=== PATIENT | male | born 1980 | race Two or more races ===

== ENCOUNTER 2017-03-21 05:49 | Emergency (ER) | payer BC ==
[~2017-03-21] VITALS: Ht 175.3 cm; Wt 65.8 kg
--- NOTE | 2017-03-21 05:50 | NUR ---
to bed 2 ambulatory c/o chest pain since 28, "I've been binge drinking for 5 days". pt [id number] no acute distress noted, resp even and unlabored. place pt on cardiac monitoring, continuous pox. pending er md hein.
--- NOTE | 2017-03-21 06:02 | NUR ---
er md at bedside to eval pt with orders received.
[2017-03-21] MEDS ORDERED: LORAZEPAM INJ 2 MG/ML VIAL ONE (06:19)
[2017-03-21] MEDS ORDERED: ONDANSETRON HCL/PF 4 MG/2 ML VIAL ONE (06:19)
[2017-03-21] MEDS ORDERED: Thiamine 100 MG/ML VIAL ONE (06:19)
[2017-03-21] MEDS ORDERED: HYDROMORPHONE 1 MG/1 ML DISP.SYRIN ONE (06:21)
[2017-03-21] MEDS ORDERED: HYDROMORPHONE INJ 2 MG/ML DISP.SYRIN IV ONE (06:30)
[2017-03-21] MEDS ORDERED: Thiamine 100 MG in IV D5W 50 ML IV SCH (06:30)
[2017-03-21] MEDS ORDERED: LORAZEPAM INJ 2 MG/ML VIAL IV ONE (06:30)
[2017-03-21] MEDS ORDERED: ONDANSETRON HCL/PF 4 MG/2 ML VIAL IVP ONE (06:30)
[2017-03-21] MEDS ORDERED: IV NS 0.9% 1,000 ML BAG IV ONE (06:30)
--- NOTE | 2017-03-21 06:34 | NUR ---
rn at bedside to medicate pt.
[2017-03-21 06:36] LABS: CALCIUM, SERUM 7.8 mg/dL (8.5-10.1); CARBON DIOXIDE 30 mmol/L (21-32); CHLORIDE 98 mmol/L (98-107); CREATININE 0.8 mg/dL (0.6-1.3); GLUCOSE 96 mg/dL (74-106); POTASSIUM 3.1 mmol/L (3.5-5.1); SODIUM SERUM 133 mmol/L (136-145); UREA NITROGEN, BLOOD 10 mg/dL (7-18)
[2017-03-21 06:43] LABS: ALANINE AMINOTRANSFERASE 103 U/L (12-78); ALBUMIN 3.3 g/dL (3.4-5.0); ALKALINE PHOSPHATASE 70 U/L (46-116); ASPARTATE AMINOTRANSFERASE 92 U/L (15-37); BILIRUBIN,DIRECT 0.1 mg/dL (0.0-0.2); BILIRUBIN,TOTAL 0.4 mg/dL (0.2-1.0); LIPASE 337 U/L (73-393); TOTAL PROTEIN, SERUM 6.5 g/dL (6.4-8.2)
[2017-03-21 06:46] LABS: BASOPHILS % (AUTO) 0.4 % (0.0-2.0); EOSINOPHILS # (AUTO) 0.4 /CMM (0.0-0.7); EOSINOPHILS % (AUTO) 4.6 % (0.0-6.0); HEMATOCRIT 35 % (39-51); HEMOGLOBIN 11.7 g/dL (13.5-17.5); LYMPHOCYTES # (AUTO) 1.6 /CMM (0.8-4.8); LYMPHOCYTES % (AUTO) 20.4 % (20.0-44.0); MEAN CORPUSCULAR HEMOGLOBIN 29 PG (26.0-33.0); MEAN CORPUSCULAR HGB CONC 34 g/dl (31.0-36.0); MEAN CORPUSCULAR VOLUME 85 fL (80-96); MONOCYTES # (AUTO) 0.4 /CMM (0.1-1.30); MONOCYTES % (AUTO) 5.8 % (2.0-12.0); NEUTROPHILS # (AUTO) 5.4 /CMM (1.8-8.9); NEUTROPHILS % (AUTO) 68.8 % (43.0-81.0); PLATELET COUNT (AUTO) 183 /CMM (150-450); RDW COEFFICIENT OF VARIATION 14.9 (11.5-15.0); RED BLOOD CELL COUNT(AUTO) 4.09 MIL/uL (4.5-6.0); TROPONIN I < 0.017 ng/mL (0.00-0.056); WHITE BLOOD COUNT (AUTO) 7.8 K/uL (4.3-11.0)
--- NOTE | 2017-03-21 07:12 | NUR ---
report given to am shift chrissy payne.
[2017-03-21] MEDS ORDERED: POTASSIUM CHLORIDE 20 MEQ TAB.PRT.SR PO ONE ×2 (09:00)
--- NOTE | 2017-03-21 09:45 | NUR ---
IV removed. Catheter intact and site benign. Pressure and 4x4 applied to site. No bleeding noted.
--- NOTE | 2017-03-21 09:46 | NUR ---
Patient discharged to home in stable condition. Written and verbal after care instructions given. Patient verbalizes understanding of instruction.
[2017-03-21 09:47] VITALS: BP 126/79
== END 2017-03-21 09:50 | disposition home or self-care (01) ==
LOC: ER 05:50
DX: F10.239 Alcohol dependence with withdrawal, unspecified (principal); Z98.890 Other specified postprocedural states; F41.9 Anxiety disorder, unspecified; F17.200 Nicotine dependence, unspecified, uncomplicated
CPT/HCPCS: 36415; 80048-TC; 80076-TC; 83690-TC; 84484-TC; 85025-TC; A4606; J1170; J2060; J2405; J3411; J7030; J7060; Z7610

== ENCOUNTER 2018-08-09 12:58 | Emergency (ER) | payer BC, MEDICAID ==
[~2018-08-09] VITALS: Ht 175.3 cm; Wt 66.7 kg
--- NOTE | 2018-08-09 13:58 | NUR ---
37 Y/O MALE PLACED IN BED 14 REFIL ON ANXIETY MEDS. NEW PRESCRIPTIONS GIVEN PT. DISCHARGED HOME.
[2018-08-09 14:00] VITALS: BP 119/73
== END 2018-08-09 14:01 | disposition home or self-care (01) ==
LOC: ER 13:01
DX: F41.9 Anxiety disorder, unspecified (principal); F10.10 Alcohol abuse, uncomplicated; F17.200 Nicotine dependence, unspecified, uncomplicated; Y90.9 Presence of alcohol in blood, level not specified; Z96.651 Presence of right artificial knee joint; Z98.890 Other specified postprocedural states
CPT/HCPCS: A4606; Z7610

== ENCOUNTER 2018-08-16 17:13 | Emergency (ER) | payer BC, MEDICAID ==
[~2018-08-16] VITALS: Ht 175.3 cm; Wt 69.4 kg
[2018-08-16 17:33] VITALS: BP 115/64
--- NOTE | 2018-08-16 18:10 | NUR ---
PT BIB SELF C/O RLQ PAIN RADIATING TO BACK WHICH SUDDENLY STARTED LAST NIGHT BUT WORSENED TODAY. REPORTS HX KIDNEY STONES IN 2001 WHICH FELT LIKE THIS BUT HAD ASSOCIATED HEMATURIA. DENIES HEMATURIA AT THIS TIME. RESP EVEN UNLABORED. SKIN WARM DRY. ABD SOFT, NONTENDER.
[2018-08-16 18:47] LABS: APPEARANCE,URINE Clear (CLEAR); BILIRUBIN,URINE Negative (NEGATIVE); BLOOD, URINE Negative Ery/uL (NEGATIVE); COLOR,URINE Yellow (YELLOW); KETONES,URINE Negative (NEGATIVE); LEUKOCYTE ESTERASE ,URINE Negative (NEGATIVE); NITRITE, URINE Negative (NEGATIVE); PH,URINE 7.5 (5.0-8.0); PROTEIN,URINE Negative (NEGATIVE); UGLUCOSE Negative (NEGATIVE); UROBILINOGEN,URINE 0.2 EU/dL (0.2)
[2018-08-16 18:55] LABS: BASOPHILS # (AUTO) 0.1 /CMM (0.0-0.2); BASOPHILS % (AUTO) 1.5 % (0.0-2.0); EOSINOPHILS % (AUTO) 5.6 % (0.0-6.0); HEMATOCRIT 40 % (39-51); HEMOGLOBIN 13.1 g/dL (13.5-17.5); LYMPHOCYTES % (AUTO) 45.7 % (20.0-44.0); MEAN CORPUSCULAR HGB CONC 33 g/dl (31.0-36.0); MEAN CORPUSCULAR VOLUME 90 fL (80-96); MONOCYTES # (AUTO) 0.5 /CMM (0.1-1.30); MONOCYTES % (AUTO) 11.5 % (2.0-12.0); NEUTROPHILS # (AUTO) 1.6 /CMM (1.8-8.9); NEUTROPHILS % (AUTO) 35.7 % (43.0-81.0); PLATELET COUNT (AUTO) 205 /CMM (150-450); WHITE BLOOD COUNT (AUTO) 4.4 K/uL (4.3-11.0)
[2018-08-16] MEDS ORDERED: IV NS 0.9% 1,000 ML BAG IV ONE (19:00)
[2018-08-16] MEDS ORDERED: ONDANSETRON HCL/PF 4 MG/2 ML VIAL IVP ONE (19:00)
[2018-08-16] MEDS ORDERED: KETOROLAC TROMETHAMINE INJ 30 MG/ML VIAL IV ONE (19:00)
[2018-08-16 19:03] LABS: CALCIUM, SERUM 8.6 mg/dL (8.5-10.1); CREATININE 0.8 mg/dL (0.6-1.3); POTASSIUM 3.8 mmol/L (3.5-5.1)
[2018-08-16] MEDS ORDERED: ONDANSETRON HCL/PF 4 MG/2 ML VIAL ONE (19:09)
[2018-08-16] MEDS ORDERED: KETOROLAC TROMETHAMINE INJ 30 MG/ML VIAL ONE (19:09)
[2018-08-16 19:19] LABS: ALBUMIN 3.6 g/dL (3.4-5.0); BILIRUBIN,TOTAL 0.2 mg/dL (0.2-1.0); TOTAL PROTEIN, SERUM 6.8 g/dL (6.4-8.2)
--- NOTE | 2018-08-16 20:20 | NUR ---
Patient discharged to home in stable condition. Written and verbal after care instructions given. Patient verbalizes understanding of instruction. IV removed. Catheter intact and site benign. Pressure and 4x4 applied to site. No bleeding noted. AMBULATORY STEADY GAIT
--- NOTE | 2018-08-16 20:21 | NUR ---
PT REFUSED DISCHARGE VITAL SIGNS. AFTER PT WALKED OUT, IT WAS NOTED THAT PT LEFT DISCHARGE PAPERS ON ER BED. NO RX GIVEN.
== END 2018-08-16 20:21 | disposition home or self-care (01) ==
LOC: ER 17:22
DX: R10.31 Right lower quadrant pain (principal); F10.10 Alcohol abuse, uncomplicated; F17.200 Nicotine dependence, unspecified, uncomplicated; Y90.9 Presence of alcohol in blood, level not specified; Z87.442 Personal history of urinary calculi; Z96.651 Presence of right artificial knee joint; Z98.890 Other specified postprocedural states
CPT/HCPCS: 36415; 80048-TC; 80076-TC; 81000-TC; 83690-TC; 85025-TC; 87086-TC; A4606; J1885; J2405; J7030; Z7610

== ENCOUNTER 2018-09-26 16:17 | Emergency (ER) | payer BC ==
[~2018-09-26] VITALS: Ht 165.1 cm; Wt 68.0 kg
[2018-09-26 16:44] VITALS: BP 151/74
--- NOTE | 2018-09-26 16:50 | NUR ---
PT BIBS C/O SHOULDER/ NECK PAIN X 4 DAYS - LAC, CONTUSION, REDNESS, SWLLING, NECK FROM, - H/A N/V, - TRAUMA
--- NOTE | 2018-09-26 17:07 | NUR ---
Patient discharged to home in stable condition. Written and verbal after care instructions given. Patient verbalizes understanding of instruction.
== END 2018-09-26 17:08 | disposition home or self-care (01) ==
LOC: ER 16:21
DX: M43.6 Torticollis (principal); F10.10 Alcohol abuse, uncomplicated; F17.200 Nicotine dependence, unspecified, uncomplicated; Y90.9 Presence of alcohol in blood, level not specified; Z96.651 Presence of right artificial knee joint; Z98.890 Other specified postprocedural states
CPT/HCPCS: 99281; 99406; A4606; Z7610; Z7502

== ENCOUNTER 2025-08-01 20:48 | Emergency (ER) | payer MEDICAID, OTHER ==
[~2025-08-01] VITALS: Ht 172.7 cm; Wt 68.0 kg
[2025-08-01 22:18] LABS: PLATELET COUNT (AUTO) 272 K/uL (150-450); RED BLOOD CELL COUNT(AUTO) 4.36 MIL/uL (4.5-6.0); RED CELL DISTRIBUTION WIDTH 14.1 % (11.5-15.0); WHITE BLOOD COUNT (AUTO) 6.1 K/uL (4.3-11.0)
[2025-08-01 22:23] LABS: CALCIUM, SERUM 9.1 mg/dL (8.5-10.1); CREATININE 0.7 mg/dL (0.6-1.3); SODIUM SERUM 143.0 mmol/L (136-145); UREA NITROGEN, BLOOD 13.0 mg/dL (7-18)
[2025-08-01 22:29] LABS: ASPARTATE AMINOTRANSFERASE 30.0 U/L (15-37); TOTAL PROTEIN, SERUM 7.7 g/dL (6.4-8.2)
[2025-08-01] MEDS ORDERED: MORPHINE SULFATE INJ 4 MG/ML DISP.SYRIN ONE (23:14)
[2025-08-01] MEDS ORDERED: ONDANSETRON HCL/PF 4 MG/2 ML VIAL ONE (23:14)
[2025-08-01] MEDS: IV NS 0.9% 1,000 ML BAG IV ONE (23:17)
[2025-08-01] MEDS: MORPHINE SULFATE INJ 2 MG/ML DISP.SYRIN IV ONE (23:18)
[2025-08-01] MEDS: ONDANSETRON HCL/PF 4 MG/2 ML VIAL IVP ONE (23:18)
[2025-08-01 23:36] LABS: LACTIC ACID 3.3 mmol/L (0.4-2.0)
[2025-08-01] MEDS ORDERED: CT SWABBABLE VALVE TRANS SET 1 EA INFUS.SET MC ONE (23:56)
[2025-08-01] MEDS ORDERED: IOHEXOL-300 100 ML VIAL IV ONE (23:56)
[2025-08-01] MEDS ORDERED: IV NS 0.9% 250 ML IV ONE (23:56)
[2025-08-02] MEDS ORDERED: KETOROLAC TROMETHAMINE 15 MG/ML VIAL ONE (00:30)
[2025-08-02] MEDS: KETOROLAC TROMETHAMINE 15 MG/ML VIAL IV ONE (00:32)
[2025-08-02] MEDS ORDERED: METH-649 PO (01:07)
[2025-08-02] MEDS ORDERED: IBUP-1490 PO (01:07)
[2025-08-02] MEDS ORDERED: ACET-73 PO (01:07)
[2025-08-02 01:43] VITALS: BP 112/71; TEMP 98; O2SAT 96
== END 2025-08-02 01:44 | disposition home or self-care (01) ==
LOC: ER 20:52
DX: G89.29 Other chronic pain (principal); R10.31 Right lower quadrant pain; F10.20 Alcohol dependence, uncomplicated; F17.200 Nicotine dependence, unspecified, uncomplicated; Y90.9 Presence of alcohol in blood, level not specified
CPT/HCPCS: 99285; 74177; 96374; 96361; 96375 ×2; 85025; 80048; 83605; 80076; 36415; J2270; J2405; J7030; J7050; Q9967; J1885